=== PATIENT | male | born 1970 | race Caucasian/White ===

== ENCOUNTER 2020-12-22 14:48 | Emergency (ER) | payer OTHER, SELFPAY ==
[2020-12-22 14:53] VITALS: BP 119/52; PULSE 127; RESP 16; TEMP 36.9; O2SAT 99
--- NOTE | 2020-12-22 15:06 | ED.GENADULT ---
HPI - General Adult General Chief complaint: Ear Stated complaint: earache Time Seen by Provider: 12/22/20 15:06 Source: patient and RN notes reviewed Mode of arrival: ambulatory Limitations: no limitations History of Present Illness HPI narrative: 50-year-old male presents with complaints of left otalgia for the past 3 days. Nolan reports swimming and getting water into ear 2 days prior to ear pain, increasing pain over the past 24 hours. ?Denies trouble hearing. ?Denies URI symptoms, ?No high fevers or chills. ?Denies injury to the ear. ?No nasal drainage and congestion. ?Denies nausea, vomiting, tinnitus, and dizziness. Tolerating po intake well.? The patient reports he has not been diagnosed with COVID-19. ?Patient reports receiving 2 Moderna COVID-19 vaccines. The patient reports he is not waiting for the results of a COVID-19 lab test.?The patient reports he does not have chills, weakness, or fatigue.? The patient reports he does not have a new or worsening cough or shortness of breath.? Denies chest pain.? The patient reports he does not have any rhinorrhea, congestion, loss of taste or smell, sore throat, abdominal pain, and diarrhea. ?Denies recent traveling. ?Denies concerns for COVID-19 or exposures.? At this time, the patient is not suspected of having COVID-19. Some parts of this dictation were generated by voice recognition software and may contain typographical and/or grammatical inaccuracies. Related Data Home Medications Medication Instructions Recorded Confirmed loratadine 10 mg tablet 10 mg PO DAILY 02/19/20 12/22/20 pantoprazole 40 mg tablet,delayed 40 mg PO QAM 02/19/20 12/22/20 release Bifidobacterium infantis [Align] 4 mg PO DAILY 12/22/20 12/22/20 Allergies Allergy/AdvReac Type Severity Reaction Status Date / Time amoxicillin AdvReac Unknown stomach Verified 12/22/20 14:52 upset Review of Systems Review of Systems: Narrative: CONSTITUTIONAL: Denies fever, chills, sweats. EYES: Denies visual changes, redness, discharge. ENT: Denies rhinorrhea, congestion, sore throat. Complains of LT otalgia. CARDIOVASCULAR: Denies chest pain, palpitations, edema. RESPIRATORY: Denies dyspnea, wheezing, cough. GASTROINTESTINAL: Denies abdominal pain, nausea, vomiting, diarrhea. SKIN: Denies rash or itching. MUSCULOSKELETAL: Denies acute back pain, joint pain, or myalgia. NEUROLOGIC: Denies numbness or focal weakness. PSYCHIATRIC: Denies anxiety or depression. All systems reviewed & are unremarkable except as noted in HPI and below. [facility] Past Medical History Medical History (Updated 12/23/20 @ 00:01 by Corinna Neumann) Anxiety Ex-smoker Gastroesophageal reflux disease H/O gastric ulcer Hyperprolactinemia Hypertension Irritable bowel syndrome Low HDL (under 40) Surgical History Surgical History (Updated 12/22/20 @ 15:20 by JENIFFER Montanez) History of left inguinal hernia repair Family History Family History Grandparent Hypertension, Onset Age: 58 Cerebrovascular accident Family history of lung cancer, Onset Age: 58 Father Patient's father is , Onset Age: 58 Cerebrovascular accident Mother Cerebrovascular accident Other Diabetes mellitus Family history of malignant neoplasm Social History Social History (Updated 12/22/20 @ 15:21 by JENIFFER Montanez) Smoking status: Former smoker Tobacco type: cigarettes Second hand tobacco smoke exposure: No Smoking end date: 07/10/16 Alcohol intake: current Substance use: never Substance use type: does not use Living arrangements: with family Occupation/Education: occupation Gender identity (if verbalized by the patient): Male Sexual Orientation (if Verbalized by the Patient): Straight or Heterosexual Comments At time of signature, I have reviewed and agree with the nursing past medical, surgical, social, and family history.
== END 2020-12-22 15:28 | disposition home or self-care (01) ==
PROVIDERS: Emergency Provider Nurse Practitioner Family; PCP Family Medicine
DX: H60.91 Unspecified otitis externa, right ear (principal); Z87.891 Personal history of nicotine dependence; K21.9 Gastro-esophageal reflux disease without esophagitis; I10 Essential (primary) hypertension; E22.1 Hyperprolactinemia
CPT/HCPCS: 99213; G0463

== ENCOUNTER 2022-06-30 04:45 | Emergency (ER) | payer OTHER, SELFPAY ==
[2022-06-30] VITALS (10 sets, daily range): BP systolic 123–138; BP diastolic 76–88; PULSE 89–119; RESP 15–22; TEMP 36.6; O2SAT 93–100
--- NOTE | ~2022-06-30 | XR_ITS ---
EXAMINATION: XR chest 2V DATE: 06/30/2022 05:25 INDICATION: Cough. TECHNIQUE: Frontal and lateral views of the chest were obtained. COMPARISON: Chest 2 views 08/29/2018, chest CT 08/29/2018 FINDINGS: There is mild scarring at the lung apices. There is mild atelectasis in left lower lung zon e. No pleural effusion or pneumothorax. The heart size is normal. There is mild chronic anterior wedg ing of multiple midthoracic vertebral bodies. IMPRESSION: 1. Mild atelectasis in left lower lung zone. 2. Stable mild scarring at the lung apices. Reviewed, dictated and finalized at location [facility]
--- NOTE | 2022-06-30 05:01 | ED.URI ---
HPI - URI/Sore Throat General Chief Complaint: Upper Respiratory Infection Stated Complaint: uri symptoms, sob Time Seen by Provider: 06/30/22 05:01 Source: patient Mode of arrival: ambulatory Limitations: no limitations History of Present Illness HPI Narrative: 51 years old white male woke up this morning with hoarseness of voice, was planning to go to walk, came to the emergency room and instead. Patient reports been having left sinus pressure and pain, for 1 month, started on Flonase by his family physician at that time. Patient also reports productive cough of green sputum over the last 7 days. He denies any fever, chills, nausea, vomiting, chest pain, difficulty swallowing or breathing. History of hypertension and GERD. Patient does not smoke, drinks occasionally. Related Data Home Medications Medication Instructions Recorded Confirmed loratadine 10 mg tablet (Claritin) 10 mg PO DAILY 02/19/20 01/22/21 omega 7-rsw-kac-fish oil 1,000 mg 1 cap PO DAILY 12/07/21 (120 mg-180 mg) capsule (Fish Oil) Allergies Allergy/AdvReac Type Severity Reaction Status Date / Time amoxicillin AdvReac Unknown stomach Verified 12/07/21 09:41 upset Review of Systems Review of Systems: All systems reviewed & are unremarkable except as noted in HPI and below PMFSH Past Medical History Medical History Anxiety Ex-smoker Gastroesophageal reflux disease H/O gastric ulcer Hyperprolactinemia Hypertension Irritable bowel syndrome Low HDL (under 40) Surgical History Surgical History History of left inguinal hernia repair Family History Family History Grandparent Hypertension, Onset Age: 58 Cerebrovascular accident Family history of lung cancer, Onset Age: 58 Father Patient's father is , Onset Age: 58 Cerebrovascular accident Mother Cerebrovascular accident Other Diabetes mellitus Family history of malignant neoplasm Social History Social History Smoking status: Former smoker Tobacco type: cigarettes Second hand tobacco smoke exposure: No Smoking end date: 07/10/16 Alcohol intake: current Drinks per week: 4 Substance use: never Substance use type: does not use Gender identity (if verbalized by the patient): Male Sexual Orientation (if Verbalized by the Patient): Straight or Heterosexual Exam Narrative: General appearance: Well-developed, well-nourished Skin: Normal color Head: Normocephalic, nontraumatic Eyes: Clear conjunctiva ENT: Oropharyngeal erythema, runny nose Neck: Supple, nontender Chest and respiratory: Airway patent, no respiratory distress, no accessory muscle use Heart: Regular rate/rhythm Abdomen: Soft, nontender, no organomegaly, quiet bowel sounds Vascular: Normal peripheral pulses, normal capillary refill. Musculoskeletal: Normal range of motion, nontender back Neurologic: Alert and oriented ?3, [employer] is normal as tested, no gross motor deficit Course Vital Signs Vital signs: Vital Signs Temperature 36.6 C 06/30/22 04:48 Pulse Rate 119 H 06/30/22 04:48 Respiratory Rate 22 H 06/30/22 04:48 Blood Pressure 138/88 06/30/22 04:48 Pulse Oximetry 100 06/30/22 04:48 Oxygen Delivery Room Air 06/30/22 04:48 Temperature 36.6 C 06/30/22 04:48 Pulse Rate 119 H 06/30/22 04:48 Respiratory Rate 22 H 06/30/22 04:48 Blood Pressure 138/88 06/30/22 04:48 Pulse Oximetry 100 06/30/22 04:48 Oxygen Delivery Room Air 06/30/22 04:48 MDM - UR
[2022-06-30] MEDS: predniSONE 20 MG TABLET 60 MG PO (05:50)
[2022-06-30] MEDS: IBUPROFEN 600 MG TABLET PO (05:51)
[2022-06-30] MEDS: ACETAMINOPHEN 325 MG TABLET 650 MG PO (05:51)
[2022-06-30 06:01] LABS: Influenza A QL RT-PCR Negative (Negative); Influenza B QL RT-PCR Negative (Negative); SARS-CoV-2 RNA PCR Negative
== END 2022-06-30 07:37 | disposition home or self-care (01) ==
PROVIDERS: Emergency Provider Emergency Medicine; PCP Family Medicine
DX: J06.9 Acute upper respiratory infection, unspecified (principal); J40 Bronchitis, not specified as acute or chronic; J32.9 Chronic sinusitis, unspecified; Z20.822 Contact with and (suspected) exposure to COVID-19; K21.9 Gastro-esophageal reflux disease without esophagitis; I10 Essential (primary) hypertension; K58.9 Irritable bowel syndrome, unspecified; F41.9 Anxiety disorder, unspecified; Z87.891 Personal history of nicotine dependence
CPT/HCPCS: 71046; 87636; 99283; A9270; J7512

== ENCOUNTER 2024-03-13 06:04 | Day surgery (SDC) | payer OTHER, SELFPAY ==
[2024-01-30 09:32] VITALS: BMI 30.2
[2024-02-26 12:01] VITALS: BMI 32.3
[2024-03-13 06:21] VITALS: BP 124/82; PULSE 89; RESP 18; TEMP 36.7; O2SAT 100; BMI 30.3
[2024-03-13] MEDS: LACTATED RINGERS 1,000 ML 150 ML IV CONT (06:53)
--- NOTE | 2024-03-13 07:24 | PM.HPGS ---
History of Present Illness History of Present Illness Consent: Risks, benefits, and alternatives have been discussed and questions answered. Patient agrees to proceed with procedure. Chief complaint: GERD; Neoplasm screening Narrative: Nolan Schuster is a 53 year old male presents for colonoscopy and EGD. Desires neoplasia screening. His current weight appetite and bowel movements are normal. He denies abdominal pain. Patient has had no bleeding. Family history noncontributory. A only patient has a long history of GE reflux disease. He denies heartburn, he has had no dysphagia or weight loss. Medications include pantoprazole and patient states this adequately controls his heartburn. However if he misses a dose he may intermittently have heartburn Review of Systems Review of Systems: All systems reviewed & are unremarkable except as noted in HPI and below PMFSH Past Medical History Medical History (Updated 03/12/24 @ 11:27 by Rudi Elizabeth DO) Anxiety Ex-smoker Gastroesophageal reflux disease H/O gastric ulcer Hiatal hernia Hyperlipidemia Hyperprolactinemia Hypertension Irritable bowel syndrome Low HDL (under 40) Surgical History Surgical History History of left inguinal hernia repair Family History Family History Grandparent Hypertension, Onset Age: 58 Cerebrovascular accident Family history of lung cancer, Onset Age: 58 Father Patient's father is , Onset Age: 58 Cerebrovascular accident Mother Cerebrovascular accident Other Diabetes mellitus Family history of malignant neoplasm Social History Social History Smoking status: Former smoker Tobacco type: cigarettes Second hand tobacco smoke exposure: No Smoking end date: 07/10/16 Alcohol intake: current Drinks per week: 6 Substance use: never Substance use type: does not use Lack of Transportation: No Lack of Food: Never True Current Housing: I Have Housing Concerned About Future Housing: No Difficulty Paying Gas/Electric Bills: No Difficulty Paying for Meds: No Currently Unemployed: No Education: High School Diploma/GED Difficulty w/ Childcare or Family Care: No Living arrangements: with family Occupation/Education: occupation Gender identity (if verbalized by the patient): Male Sexual Orientation (if Verbalized by the Patient): Straight or Heterosexual Spiritual care concerns: No Meds Home Medications and Allergies Home Medications Medication Instructions Recorded Confirmed Type loratadine 10 mg tablet (Claritin) 10 mg PO DAILY 02/19/20 03/13/24 History atorvastatin 10 mg tablet 10 mg PO DAILY #90 tabs 01/15/24 03/13/24 Rx buspirone 10 mg tablet 10 mg PO TID PRN anxiety #90 tabs 02/04/24 03/13/24 Rx lisinopril 20 mg tablet 20 mg PO DAILY #90 tabs 02/20/24 03/13/24 Rx pantoprazole 40 mg tablet,delayed See Rx Instructions .Route .COMPLEX 02/26/24 03/13/24 History release (Protonix) Allergies Allergy/AdvReac Type Severity Reaction Status Date / Time amoxicillin AdvReac Unknown stomach Verified 03/13/24 06:36 upset Vital Signs Vital Signs - 24 hr 03/13/24 06:21 Temperature 98.1 F Pulse Rate 89 Respiratory Rate 18 Blood Pressure 124/82 Pulse Oximetry 100 Oxygen Delivery Room Air Exam Narrative: Physical exam reveals patient to be alert. Vital signs stable. HEENT exam is unremarkable. Patient is anicteric. HEENT exam is unremarkable. Patient is anicteric. Lungs are clear to auscultation and to percussion. Heart is without murmur or extra sounds. The abdominal exam bowel sounds are present soft nontender with no organomegaly. Digital external rectal exam normal. Assessment and Plan Assessment and plan (1) Encounter for screening colonosco
--- NOTE | 2024-03-13 08:06 | WPDANESEPPF ---
Anes - Initial Pre Proc Eval Procedure: Operation Date: 03/13/24 08:00 Proposed Procedures p Esophagogastroduodenoscopy - Juan Ramon Blanchard MD s Screening Colonoscopy - Juan Ramon Blanchard MD Date/Time: 03/13/24 08:06 Surgeon: Juan Ramon Blanchard MD Pre Op Diagnosis: GERD; Neoplasm screening Patient Data Age: 53 Gender: M Height: 1.83 m Weight: 101.35 kg Last Vital Signs Temp 36.7 C 03/13/24 06:21 Pulse 89 03/13/24 06:21 Resp 18 03/13/24 06:21 BP 124/82 03/13/24 06:21 Pulse Ox 100 03/13/24 06:21 O2 Del Method Room Air 03/13/24 06:21 Allergies Allergy/AdvReac Type Severity Reaction Status Date / Time amoxicillin AdvReac Unknown stomach Verified 03/13/24 06:36 upset Home Medications Medication Instructions Recorded Confirmed Type loratadine 10 mg tablet (Claritin) 10 mg PO DAILY 02/19/20 03/13/24 History atorvastatin 10 mg tablet 10 mg PO DAILY #90 tabs 01/15/24 03/13/24 Rx buspirone 10 mg tablet 10 mg PO TID PRN anxiety #90 tabs 02/04/24 03/13/24 Rx lisinopril 20 mg tablet 20 mg PO DAILY #90 tabs 02/20/24 03/13/24 Rx pantoprazole 40 mg tablet,delayed See Rx Instructions .Route .COMPLEX 02/26/24 03/13/24 History release (Protonix) Patient hx anesthesia problems: none Family hx anesthesia problems: none Results Review: All pre-operative results and documents have been reviewed as part of the pre-operative evaluation. [facility] Past Medical History Medical History Anxiety Ex-smoker Gastroesophageal reflux disease H/O gastric ulcer Hiatal hernia Hyperlipidemia Hyperprolactinemia Hypertension Irritable bowel syndrome Low HDL (under 40) Surgical History Surgical History History of left inguinal hernia repair Family History Family History Grandparent Hypertension, Onset Age: 58 Cerebrovascular accident Family history of lung cancer, Onset Age: 58 Father Patient's father is , Onset Age: 58 Cerebrovascular accident Mother Cerebrovascular accident Other Diabetes mellitus Family history of malignant neoplasm Social History Social History Smoking status: Former smoker Tobacco type: cigarettes Second hand tobacco smoke exposure: No Smoking end date: 07/10/16 Alcohol intake: current Drinks per week: 6 Substance use: never Substance use type: does not use Lack of Transportation: No Lack of Food: Never True Current Housing: I Have Housing Concerned About Future Housing: No Difficulty Paying Gas/Electric Bills: No Difficulty Paying for Meds: No Currently Unemployed: No Education: High School Diploma/GED Difficulty w/ Childcare or Family Care: No Living arrangements: with family Occupation/Education: occupation Gender identity (if verbalized by the patient): Male Sexual Orientation (if Verbalized by the Patient): Straight or Heterosexual Spiritual care concerns: No Anes - Eval Final PreProcedure Day of Procedure 03/13/24 08:06 Patient weight: obese Heart: regular rate and rhythm Lungs: clear to auscultation Airway: Mallampati scale class II Neurological: alert and oriented Last oral intake: >/= 8 hours ASA classification: III Emergent: no Anesthetic plan: proceed Anesthesia type and monitoring: general GIVS Results Review: All pre-operative results and documents have been reviewed as part of the pre-operative evaluation. Informed Consent: The patient's anesthetic plan and its attendant risks and benefits were discussed with the patient/family/POA. Questions were solicited and answers provided to the satisfaction of the patient/family/POA.
[2024-03-13 08:38] VITALS: BP 115/74; PULSE 88; RESP 16; O2SAT 97
--- NOTE | 2024-03-13 08:44 | WPDANESPN ---
Anes - Prog Note Post-Op Date/Time: 03/13/24 08:44 Cardiovascular status: normal Respiratory status: normal Airway patency: baseline Mental status: baseline Post-Op hydration status: normal Vital Signs: Last Vital Signs Temp 36.7 C 03/13/24 06:21 Pulse 89 03/13/24 06:21 Resp 18 03/13/24 06:21 BP 124/82 03/13/24 06:21 Pulse Ox 100 03/13/24 06:21 O2 Del Method Room Air 03/13/24 06:21 Pain Score (VAS): 0 I/O: Intake & Output 03/12/24 03/13/24 03/13/24 23:59 07:59 15:59 Intake Total 600 Balance 600 Post-procedural complaints: none Patient Feedback: Patient satisfied with anesthetic care.
[2024-03-13 08:48] VITALS: BP 100/86; PULSE 84; RESP 16; O2SAT 99
[2024-03-13 08:58] VITALS: BP 104/76; PULSE 84; RESP 16; O2SAT 100
== END 2024-03-13 09:11 | disposition home or self-care (01) ==
PROVIDERS: PCP Family Medicine; Visit Provider Internal Medicine Gastroenterology
PROC: 0DJ08ZZ Inspection of Upper Intestinal Tract, Via Natural or Artificial Opening Endoscopic (ICD-10-PCS; CPT 43235; principal; 2024-03-13 08:00)
PROC: 0DJD8ZZ Inspection of Lower Intestinal Tract, Via Natural or Artificial Opening Endoscopic (ICD-10-PCS; CPT 45378; 2024-03-13 08:00)
DX: Z12.11 Encounter for screening for malignant neoplasm of colon (principal); K21.9 Gastro-esophageal reflux disease without esophagitis; K64.8 Other hemorrhoids
CPT/HCPCS: 45378; 43235